=== PATIENT | male | born 1995 | race Caucasian/White ===

== ENCOUNTER 2023-06-13 19:15 | Emergency (ER) | payer OTHER ==
[2023-06-13] MEDS ORDERED: Acetaminophen 325 MG TAB ONE (20:41)
== END 2023-06-13 21:30 | disposition home or self-care (01) ==
LOC: CSHERS 19:15
DX: S06.0XAA Concussion with loss of consciousness status unknown, initial encounter (principal); W10.8XXA Fall (on) (from) other stairs and steps, initial encounter
CPT/HCPCS: 70450